=== PATIENT | male | born 1960 | race Caucasian/White ===

== ENCOUNTER 2017-10-01 01:20 | Emergency (ER) | payer SELFPAY ==
[~2017-10-01] VITALS: Ht 185.4 cm; Wt 89.5 kg
[2017-10-01 01:22] VITALS: BP 166/95; PULSE 74; RESP 20; TEMP 97.9; O2SAT 99
[2017-10-01 02:22] LABS: AUTOMATED NEUTROPHIL # 6.3 TH/MM3 (1.8-7.7); BASOPHIL # 0.1 TH/MM3 (0-0.2); BASOPHIL % 0.7 % (0.0-2.0); EOSINOPHIL # 0.2 TH/MM3 (0-0.4); EOSINOPHIL % 2.3 % (0.0-4.0); HEMATOCRIT 48.1 % (39.0-51.0); HEMOGLOBIN 16.2 GM/DL (13.0-17.0); LYMPH % 17.7 % (9.0-44.0); LYMPHOCYTE # 1.6 TH/MM3 (1.0-4.8); MEAN CELL VOLUME 87.2 FL (80.0-100.0); MEAN CORPUSCULAR HEMOGLOBIN 29.5 PG (27.0-34.0); MEAN CORPUSCULAR HGB CONC 33.8 % (32.0-36.0); MEAN PLATELET VOLUME 8.3 FL (7.0-11.0); MONO % 8.6 % (0.0-8.0); MONOCYTE # 0.8 TH/MM3 (0-0.9); NEUT % 70.7 % (16.0-70.0); PLATELET COUNT 298 TH/MM3 (150-450); RED BLOOD COUNT 5.51 MIL/MM3 (4.50-5.90); RED CELL DISTRIBUTION WIDTH 13.6 % (11.6-17.2); WHITE BLOOD COUNT 8.9 TH/MM3 (4.0-11.0)
[2017-10-01 02:34] LABS: BICARBONATE 27.2 MEQ/L (21.0-32.0); BLOOD UREA NITROGEN 20 MG/DL (7-18); CALCIUM 8.7 MG/DL (8.5-10.1); CHLORIDE 103 MEQ/L (98-107); CREATININE 1.09 MG/DL (0.60-1.30); GLOMERULAR FILTRATION RATE 70 ML/MIN (>89); GLUCOSE,RANDOM 102 MG/DL (74-106); SODIUM (NA) 138 MEQ/L (136-145)
[2017-10-01 02:38] LABS: TROPONIN I LESS THAN 0.02 NG/ML (0.02-0.05)
--- NOTE | 2017-10-01 02:43 | RADRPT ---
EXAM DATE/TIME: 10/01/2017 02:02 [place] COMPARISON: No previous studies available for comparison. INDICATIONS : Shortness of breath. Tightness in chest. MEDICAL HISTORY : None. SURGICAL HISTORY : None. ENCOUNTER: Initial ACUITY: 1 day PAIN SCORE: 2/10 LOCATION: Bilateral chest FINDINGS: PA and lateral views of the chest demonstrate the lungs to be symmetrically aerated without evidence of mass, infiltrate or effusion. The cardiomediastinal contours are unremarkable. Osseous structure s are intact. CONCLUSION: 1. No acute cardiopulmonary disease. Jett Novak MD on October 01, 2017 at 2:41 Board Certified Radiologist. This report was verified electronically.
[2017-10-01] MEDS ORDERED: ASPIRIN 81 MG CHEW TAB CHEW ONE (05:30)
--- NOTE | 2017-10-01 05:36 | PD ---
HPI Chief Complaint: Anxiety Time Seen by Provider: 04:57 Travel History International Travel<30 days: No Contact w/Intl Traveler<30days: No Traveled to known affect area: No History of Present Illness HPI The patient is a 57 year old male who presents to the [facility] emergency department with a history of shortness of breath and sweating that awoke him from sound sleep earlier this evening. He reports that he does have a history of anxiety and had been forgetting to take his Cymbalta for the last 2 days. When he began to have the symptoms he thought he was experiencing anxiety and a panic attack and took his Cymbalta. The patient reports that the symptoms were not resolving. The patient reports that he felt tingly with this. The patient reports having left upper extremity weakness, however he reports that this is residual weakness from a prior stroke. He denies having any other numbness, weakness, facial droop, or difficulty with word finding ability. He denies having any chest pain or chest pressure. He reports having nausea but no vomiting. He denies having any recent diarrhea. His significant other at the bedside reports that they did have a meal this evening which did not taste right. He earlier in the evening also was experiencing some nausea. Otherwise , the patient reports that he has been traveling from [place] down to [place]. He reports that he is traveling by car. He reports that he has a home in both places. On review of systems, the patient reports having denies having any recent fevers, cough, congestion, neck pain, abdominal pain, vomiting, diarrhea, urinary symptoms, or other neurologic symptoms. The patient's recent history was also complicated by having an upper respiratory infection with low- grade fevers, cough and congestion, however he has been well for the last week. He reports that he completed a course of cephalexin for 7 days. [facility], [facility] Past Medical History Narrative Medical The patient's past medical history is significant for an AVM malformation status post embolization and surgery, however he reports that the surgery 3 years ago was called located by him having a stroke. The patient reports that he developed left-sided weakness with difficulty speaking. He reports that he has nearly complete resolution of all of his symptoms except for some mild weakness in the left upper extremity. The patient has a history of hypertension , low testosterone, anxiety disorder, acid reflux. Cerebrovascular Accident: Yes (stroke x1 from AVM repair) Tetanus Vaccination: < 5 Years Influenza Vaccination: No Past Surgical History Narrative Surgical The patient's past surgical history is significant for AVM embolization and surgery, right knee replacement 2, left hip surgery, right arm ORIF. Neurologic Surgery: Yes (AVM repair) Social History Alcohol Use: No Tobacco Use: No Substance Use: No Allergies-Medications (Allergen,Severity, Reaction): Coded Allergies: No Known Allergies (Unverified , 10/01/17) Narrative Medication dexilant, carvedilol, a sleep aid when necessary, testosterone injections IM weekly. Review of Systems Except as stated in HPI: all other systems reviewed are Neg General / Constitutional: No: Fever Eyes: No: Visual changes HENT: No: Headaches, Congestion Cardiovascular: Positive: Diaphoresis, Dyspnea on exertion, No: Chest Pain or Discomfort Respiratory: Positive: Shortness of Breath, No: Cough Gastrointestinal: Positive: Nausea, No: Vomiting, Diarrhea, Abdominal Pain, Indigestion Genitourinary: No: Dysuria Musculoskeletal: No: Pain Skin: No Rash Neurologic: No: Weakness, Focal Abnormalities, Change in Mentation, Slurred Speech, Sensory Disturbance Psychiatric: Positive: Anxiety, No: Depression Endocrine: No: Polydipsia Hematologic/Lymphatic: No: Easy Bruising Physical Exam Narrative General: The patient is a well-developed well-nourished male in no acute distress. The patient reports having complete resolution of the symptoms that he was experiencing earlier this evening. Head and Neck exam: Head is normocephalic atraumatic. Eyes: EOMI, pupils are equal round and reactive to light. Nose: Midline septum with pink mucous membranes Mouth: Dentition unremarkable. Moist mucus membranes. Posterior oropharynx is not erythematous. No tonsillar hypertrophy. Uvula midline. Airway patent. Neck: No palpable lymphadenopathy. No nuchal rigidity. No thyromegaly. Cardiovascular: Regular rate and rhythm without murmurs, gallops, or rubs. Lungs: Clear to auscultation bilaterally. No wheezes, rhonchi, or rales. Abdomen: Soft, without tenderness to palpation in all 4 quadrants of the abdomen. No guarding, rebound, or rigidity. Normal bowel sounds are audible. No tenderness on palpation of McBurney's point. Extremities: No clubbing, cyanosis, or edema. 2+ pulses in all 4 extremities. No calf tenderness on palpation. Negative Homans sign. No palpable cords. Back: No spinous process tenderness to palpation. No costovertebral angle tenderness to palpation. Neurologic Exam: Cranial nerves 2-12 were intact on exam. Strength is 5/5 in all 4 extremities. No sensory deficits noted. Skin Exam: No rash noted. Intact skin that is warm and dry. Data Data Last Documented VS Vital Signs Date Time Temp Pulse Resp B/P (MAP) Pulse Ox O2 Delivery O2 Flow Rate FiO2 10/01/17 01:38 18 10/01/17 01:22 97.9 74 166/95 (118) 99 Orders Orders Ckmb (Isoenzyme) Profile (10/01/17 01:42) Troponin I (10/01/17 01:42) Complete Blood Count With Diff (10/01/17 01:42) Basic Metabolic Panel (Bmp) (10/01/17 01:42) Chest, Pa & Lat (10/01/17 01:42) Iv Access Insert/Monitor (10/01/17 01:42) Ecg Monitoring (10/01/17 01:42) Oxygen Administration (10/01/17 01:42) Oximetry (10/01/17 01:42) Electrocardiogram (10/01/17 01:42) CKMB (10/01/17 01:55) CKMB% (10/01/17 01:55) Electrocardiogram (10/01/17 05:14) Creatine Kinase (Cpk) (10/01/17 05:14) Ckmb (Isoenzyme) Profile (10/01/17 05:14) Troponin I (10/01/17 05:14) B-Type Natriuretic Peptide (10/01/17 05:14) D-Dimer (10/01/17 05:14) Aspirin Chew (Aspirin Chew) (10/01/17 05:30) CKMB (10/01/17 05:30) CKMB% (10/01/17 05:30) Ed Discharge Order (10/01/17 06:30) Labs Laboratory Tests Test 10/01/17 01:55 10/01/17 05:30 White Blood Count 8.9 TH/MM3 Red Blood Count 5.51 MIL/MM3 Hemoglobin 16.2 GM/DL Hematocrit 48.1 % Mean Corpuscular Volume 87.2 FL Mean Corpuscular Hemoglobin 29.5 PG Mean Corpuscular Hemoglobin Concent 33.8 % Red Cell Distribution Width 13.6 % Platelet Count 298 TH/MM3 Mean Platelet Volume 8.3 FL Neutrophils (%) (Auto) 70.7 % Lymphocytes (%) (Auto) 17.7 % Monocytes (%) (Auto) 8.6 % Eosinophils (%) (Auto) 2.3 % Basophils (%) (Auto) 0.7 % Neutrophils # (Auto) 6.3 TH/MM3 Lymphocytes # (Auto) 1.6 TH/MM3 Monocytes # (Auto) 0.8 TH/MM3 Eosinophils # (Auto) 0.2 TH/MM3 Basophils # (Auto) 0.1 TH/MM3 CBC Comment DIFF FINAL Differential Comment Blood Urea Nitrogen 20 MG/DL Creatinine 1.09 MG/DL Random Glucose 102 MG/DL Calcium Level 8.7 MG/DL Sodium Level 138 MEQ/L Potassium Level 3.6 MEQ/L Chloride Level 103 MEQ/L Carbon Dioxide Level 27.2 MEQ/L Anion Gap 8 MEQ/L Estimat Glomerular Filtration Rate 70 ML/MIN Total Creatine Kinase 147 U/L 159 U/L Creatine Kinase MB 1.7 NG/ML 1.5 NG/ML Troponin I LESS THAN 0.02 NG/ML LESS THAN 0.02 NG/ML D-Dimer Quantitative (PE/DVT) LESS THAN 0.19 MG/L FEU B-Type Natriuretic Peptide 5 PG/ML MDM Medical Decision Making Medical Screen Exam Complete: Yes Emergency Medical Condition: Yes Medical Record Reviewed: Yes Interpretation(s) Last Impressions Chest X-Ray 10/01/17 0142 Signed Impressions: Service Date/Time: Sunday, October 01, 2017 02:02 - CONCLUSION: 1. No acute cardiopulmonary disease. Jett Novak MD Differential Diagnosis Acute coronary syndrome, versus pulmonary embolism, versus acid reflux, versus anxiety disorder Narrative Course During the course of the patients emergency department visit, the patients history, examination, and differential diagnosis were reviewed with the patient. The patient was placed on a cardiac technologist with oximetry and frequent blood pressure monitoring. The patient had IV access obtained and blood work sent for analysis. The patient had an ECG done on arrival. The patient's ECG reveals a sinus rhythm heart rate of 65, no acute ST segment elevation or depression. T waves are inverted in lead 3, QRS duration is 89 ms, QTC 390 ms. The patient was initially provided aspirin 324 mg by mouth 1. The patients laboratory studies were reviewed and remarkable for a CBC that is unremarkable, basic metabolic profile remarkable for BUN of 20, GFR 70, initial set of cardiac enzymes within normal limits Radiology studies were reviewed and remarkable for a chest x-ray that shows no acute cardiopulmonary disease. The patient had a protocol evaluation on triage due to a prolonged wait to get back to an emergency department bed, therefore I added onto the patient's workup a d-dimer due to his recent travel. Additionally as his last set of cardiac enzymes were over 3 hours ago, repeat set will be drawn. Second set of cardiac enzymes are negative, repeat ECG is unchanged. D-dimer is less than 0.5 decreased the likelihood of pulmonary embolism with no other significant risk factors, BNP is within normal limits. The patient is asymptomatic at this time. The patient will be discharged home. The patient is encouraged to take his Cymbalta on a scheduled basis. The patient is resting comfortably and feels better, is alert and in no distress. The patients results and examination findings were discussed with the patient. The repeat examination is unremarkable and benign. The history, exam, diagnostic testing, and current condition do not suggest any significant pathology to warrant further testing, continued ED treatment, admission, or surgical evaluation at this point. The vital signs have been stable. The patient does not have uncontrollable pain, intractable vomiting, or other significant symptoms. The patient's condition is stable and appropriate for discharge. The patient will pursue further outpatient evaluation with a primary care physician or other designated or consulting physician as indicated in the discharge instructions. The patient expressed understanding and was agreeable with this plan. Diagnosis Primary Impression: Panic attack Referrals: Primary Care Physician 3 days Patient Instructions: General Instructions, Panic Attack (ED) Med/Other Pt SpecificInfo: No Change to Meds Disposition: 01 DISCHARGE HOME Condition: Stable Olga Em MD Oct 01, 2017 05:36
[2017-10-01 06:14] LABS: TROPONIN I LESS THAN 0.02 NG/ML (0.02-0.05)
--- NOTE | 2017-10-01 21:14 | EKG ---
Date Performed: 10/01/2017 Time Performed: 05:38:19 PTAGE: 57 years EKG: Sinus rhythm POSSIBLE INFERIOR MYOCARDIAL INFARCTION ABNORMAL ECG PREVIOUS TRACING : 10/01/2017 04.01 Compared to prior tracing no significant change DOCTOR: Mayelin Sewell Interpretating Date/Time 10/01/2017 21:12:45
--- NOTE | 2017-10-01 21:22 | EKG ---
Date Performed: 10/01/2017 Time Performed: 01:51:45 PTAGE: 57 years EKG: Sinus rhythm NONSPECIFIC T-WAVE ABNORMALITY BORDERLINE ECG DOCTOR: Mayelin Sewell Interpretating Date/Time 10/01/2017 21:21:35
== END 2017-10-01 06:44 | disposition home or self-care (01) ==
LOC: NEPE 01:20
DX: F41.0 Panic disorder [episodic paroxysmal anxiety] (principal); R53.1 Weakness; R11.0 Nausea; R94.31 Abnormal electrocardiogram [ECG] [EKG]; I10 Essential (primary) hypertension
CPT/HCPCS: 71046; 80048; 82550; 82552; 83880; 84484; 85025; 85379; 93005; 99285